=== PATIENT | male | born 1960 | race Caucasian/White ===

== ENCOUNTER 2017-10-13 20:13 | Emergency (ER) | payer BC, OTHER ==
[2017-10-13] MEDS ORDERED: Ketorolac Tromethamine 30 MG/ML VIAL ONE (21:58)
[2017-10-13] MEDS ORDERED: Ibuprofen 200 MG TAB ONE (21:59)
--- NOTE | 2017-10-13 22:04 | RAD ---
TWO VIEWS LEFT HIP 10/13/17 HISTORY: Left hip pain. AP and frogleg views left hip is obtained. No evidence of left hip fractures, subluxations, or bony lesions seen. IMPRESSION: Normal two views left hip. POS: [facility]
== END 2017-10-13 22:06 | disposition home or self-care (01) ==
LOC: ERS 20:13
DX: M62.89 Other specified disorders of muscle (principal); I10 Essential (primary) hypertension; F17.210 Nicotine dependence, cigarettes, uncomplicated; V49.9XXA Car occupant (driver) (passenger) injured in unspecified traffic accident, initial encounter; W22.11XA Striking against or struck by driver side automobile airbag, initial encounter
CPT/HCPCS: 99406; J1885